=== PATIENT | female | born 1945 | race Caucasian/White ===

== ENCOUNTER → 2016-11-22 | Outpatient (CLI) | payer OTHER, BC ==
[~2016-11-22] MED LIST: IOPAMIDOL (ISOVUE-300) 50 ML VIAL IV ONE
--- NOTE | 2016-11-22 12:07 | CT ---
CT Scan of the Abdomen and Pelvis (With Contrast) Clinical Indications: Gallbladder cancer. Comparison: July 07, 2015. Technique: Dilute contrast was given orally prior to scanning. 90 mL of Isovue-300 were given intrav enously by machine power injection. Multidetector helical CT imaging was performed from the diaphrag m to the symphysis pubis. Dose reduction techniques were utilized. Findings: The lung bases are clear. The liver, gallbladder, spleen, pancreas, and adrenal glands are unremarkable. Small bowel and colon are unremarkable. There is narrowing of the right upper pole moiety anastomosis. There is mild hydroureter. There is mi ld urothelial enhancement of the upper polar collecting system. There are residual calcifications in the upper and lower collecting system. The largest is 5 mm. The lower pole collecting system on the r ight is unremarkable. The left kidney and ureter are unremarkable. The diverting ileostomy to the residual bladder versus neobladder is unremarkable. It is decompressed at the anastomosis. The residual bladder versus neobladder is unremarkable. Small bowel and colon are unremarkable. The bones exhibit degenerative changes. No lytic or blastic lesions. Impression: 1. Persistent hydroureter of the upper pole moiety of the right kidney with mild residual enhancement , but no definite evidence of recurrent cancer in this patient who is status post cystectomy and urin simin diversion. The right ureter narrows as it enters the small bowel loop for urinary diversion. 2. These findings are stable compared to prior examination.
== END ==
LOC: CIMAGING 09:37
PROVIDERS: ATTEND Urology
DX: C67.9 Malignant neoplasm of bladder, unspecified (principal); N13.4 Hydroureter
CPT/HCPCS: 74177; Q9967